=== PATIENT | female | born 1955 | race African-American/Black ===

== ENCOUNTER 2021-07-01 16:35 | Emergency (ER) | payer MEDICARE ==
[~2021-07-01] VITALS: Ht 175.3 cm; Wt 69.0 kg
[2021-07-01] MEDS ORDERED: KETOROLAC 15 MG/ML VIAL. IVP ONE (17:00)
[2021-07-01 17:02] LABS: BASO % 1 % (0-3); EOS % 0 % (0-3); HEMATOCRIT 35.5 % (36.0-47.0); HEMOGLOBIN 11.5 g/dL (12.0-15.5); LYMPH # 1.4 x10^3/uL (1.0-4.8); LYMPH % 18 % (24-48); MEAN CORPUSCULAR HEMOGLOBIN 29 pg (25-35); MEAN CORPUSCULAR HGB CONC 32 g/dL (31-37); MEAN CORPUSCULAR VOLUME 90 fL (79-100); MONO # 0.4 x10^3/uL (0.0-1.1); MONO % 5 % (0-9); NEUT # 5.7 x10^3/uL (1.8-7.7); NEUT % 76 % (31-73); PLATELET COUNT 236 x10^3/uL (140-400); RED BLOOD COUNT 3.96 x10^6/uL (3.50-5.40); RED CELL DISTRIBUTION WIDTH 15.8 % (11.5-14.5); WHITE BLOOD COUNT 7.5 x10^3/uL (4.0-11.0)
[2021-07-01 17:12] LABS: CREATININE 1.1 mg/dL (0.6-1.0); GFR 49.8; POTASSIUM 3.8 mmol/L (3.5-5.1)
[2021-07-01 17:19] LABS: ALBUMIN 3.3 g/dL (3.4-5.0); ALBUMIN/GLOBULIN RATIO 0.7 (1.0-1.7); MAGNESIUM 1.9 mg/dL (1.8-2.4); TOTAL BILIRUBIN 0.6 mg/dL (0.2-1.0); TOTAL PROTEIN 7.8 g/dL (6.4-8.2)
--- NOTE | 2021-07-01 17:27 | RAD ---
Exam: CT head, maxillofacial and cervical spine INDICATION: Fall with face pain, right pain/swelling TECHNIQUE: Sequential axial images through the head, neck facial and cervical spine were obtained wit hout the administration of IV contrast. Exposure: One or more of the following in the visualized dose reduction techniques were utilized for this examination: 1. Automated exposure control 2. Adjustment of the MA and/or KV according to patient size 3. Use of iterative of reconstructive technique Comparisons: None FINDINGS: Head: No focal parenchymal lesion or hemorrhage is identified. There is no midline shift or sulcal effaceme nt. Moderate patchy hypodensity in the periventricular white matter. No acute vascular territory infarcti on is identified. Ndiaye-white distinction is preserved. The ventricular system is within normal limits without compression hydrocephalus. The basal cisterns are well maintained. Face: Mildly displaced fracture involving the anterior wall of the right maxillary sinus and lateral wall o f the right maxillary sinus. There is a orbital blowout fracture involving the medial wall of the lef t orbit. There is partial opacification of the right ethmoid air cells and right maxillary sinus. Jazmyne bes and intraorbital contents are otherwise unremarkable. Cervical spine: Vertebral body heights and alignment are well-maintained. Fracture through the cervical spine is not identified. Multilevel spondylotic change in cervical spine with degenerative disease greatest at C3-C4, C4-C5 an d C5-C6. Visualized paraspinal soft tissues are unremarkable. IMPRESSION: 1. No acute intracranial abnormality. 2. Mildly displaced fracture involving the anterior and lateral wall of the right maxillary sinus. 3. Orbital blowout fracture involving the medial wall of the right orbit. The globe and intraorbital contents are otherwise normal. 4. Negative CT C-spine for acute traumatic injury. Electronically signed by: Sandra Schwartz MD (07/01/2021 5:24 PM) [facility]
--- NOTE | 2021-07-01 17:48 | PHYS DOC ---
Past Medical History Additional Past Medical Histor: POOR HISTORIAN, eye problems, poor vision Additional Past Surgical Histo: POOR HISTORIAN Smoking Status: Never Smoker Alcohol Use: None General Adult EDM: Chief Complaint: MECHANICAL FALL HPI: HPI: Patient is a 66 year old female who presents via EMS after a fall. She reports headache and right eye pain. Patient states that she felt dizzy and fell forward hitting her face on the pavement. She was talking with a friend by his car when she fell to the ground. There is a question of altered mental status associated, EMS thinks she may be intoxicated. Patient is either unable or unwilling to provide further history. Review of Systems: Review of Systems: Constitutional: Denies fever, chills or generalized weakness Eyes: See HPI HENT: Denies ear pain, nasal congestion or sore throat Respiratory: Denies cough or shortness of breath Cardiovascular: Denies chest pain, palpitations or edema GI: Denies abdominal pain, nausea, vomiting, bloody stools or diarrhea : Denies dysuria or hematuria Musculoskeletal: Denies back pain or joint pain Integument: Denies rash or other skin lesion Neurologic: See HPI Heart Score: C/O Chest Pain: No Current Medications: Current Medications Medications (Trade) Dose Ordered Sig/Faisal Start Time Stop Time Status Last Admin Dose Admin Ketorolac Tromethamine (Toradol 15mg Vial) 15 mg 1X ONCE 07/01/21 17:00 07/01/21 17:01 DC 07/01/21 17:00 15 MG Allergies: Allergies: Allergies Coded Allergies Type Severity Reaction Last Updated Verified No Known Drug Allergies 07/01/21 No Physical Exam: PE: Constitutional: Well developed, well nourished, no acute distress, disheveled. HENT: Normocephalic, right periorbital swelling bilateral external ears normal, oropharynx moist, markedly poor dentition, nose normal. Eyes: PERRL, EOMI, right conjunctival injection, mild periorbital swelling on the right side with watery discharge. Neck: Normal range of motion, no tenderness, no stridor. Lungs & Thorax: Equal thoracic expansion, no respiratory distress. Skin: Warm, dry, no erythema, no rash. Back: No step-off, no tenderness. Extremities: No tenderness, no cyanosis, no clubbing, ROM intact, no edema, peripheral pulses symmetrical. Neurologic: Normal motor function, normal sensory function, no focal deficits noted. Psychologic: Affect agitated, judgement normal, mood "I am dizzy." Current Patient Data: Labs: Laboratory Tests Test 07/01/21 16:50 White Blood Count 7.5 x10^3/uL (4.0-11.0) Red Blood Count 3.96 x10^6/uL (3.50-5.40) Hemoglobin 11.5 g/dL (12.0-15.5) L Hematocrit 35.5 % (36.0-47.0) L Mean Corpuscular Volume 90 fL (79-100) Mean Corpuscular Hemoglobin 29 pg (25-35) Mean Corpuscular Hemoglobin Concent 32 g/dL (31-37) Red Cell Distribution Width 15.8 % (11.5-14.5) H Platelet Count 236 x10^3/uL (140-400) Neutrophils (%) (Auto) 76 % (31-73) H Lymphocytes (%) (Auto) 18 % (24-48) L Monocytes (%) (Auto) 5 % (0-9) Eosinophils (%) (Auto) 0 % (0-3) Basophils (%) (Auto) 1 % (0-3) Neutrophils # (Auto) 5.7 x10^3/uL (1.8-7.7) Lymphocytes # (Auto) 1.4 x10^3/uL (1.0-4.8) Monocytes # (Auto) 0.4 x10^3/uL (0.0-1.1) Eosinophils # (Auto) 0.0 x10^3/uL (0.0-0.7) Basophils # (Auto) 0.0 x10^3/uL (0.0-0.2) Sodium Level 139 mmol/L (136-145) Potassium Level 3.8 mmol/L (3.5-5.1) Chloride Level 108 mmol/L (98-107) H Carbon Dioxide Level 19 mmol/L (21-32) L Anion Gap 12 (6-14) Blood Urea Nitrogen 17 mg/dL (7-20) Creatinine 1.1 mg/dL (0.6-1.0) H Estimated GFR (Cockcroft-Gault) 49.8 BUN/Creatinine Ratio 15 (6-20) Glucose Level 161 mg/dL (70-99) H Calcium Level 9.0 mg/dL (8.5-10.1) Magnesium Level 1.9 mg/dL (1.8-2.4) Total Bilirubin 0.6 mg/dL (0.2-1.0) Aspartate Amino Transferase (AST) 24 U/L (15-37) Alanine Aminotransferase (ALT) 8 U/L (14-59) L Alkaline Phosphatase 87 U/L (46-116) Total Protein 7.8 g/dL (6.4-8.2) Albumin 3.3 g/dL (3.4-5.0) L Albumin/Globulin Ratio 0.7 (1.0-1.7) L Laboratory Tests 07/01/21 16:50 Laboratory Tests 07/01/21 16:50 Vital Signs: Vital Signs Date Time Temp Pulse Resp B/P (MAP) Pulse Ox O2 Delivery O2 Flow Rate FiO2 07/01/21 20:25 72 20 184/90 (121) 98 Room Air 07/01/21 19:36 59 20 173/80 (111) 100 07/01/21 17:07 74 20 126/74 (91) 07/01/21 16:52 97.0 67 20 223/93 (136) 98 Room Air 97.0 Radiology/Procedures: Radiology/Procedures: PROCEDURE: CT HEAD AND MAXILLOFACIAL WO Exam: CT head, maxillofacial and cervical spine INDICATION: Fall with face pain, right pain/swelling TECHNIQUE: Sequential axial images through the head, neck facial and cervical spine were obtained without the administration of IV contrast. Exposure: One or more of the following in the visualized dose reduction techniques were utilized for this examination: 1. Automated exposure control 2. Adjustment of the MA and/or KV according to patient size 3. Use of iterative of reconstructive technique Comparisons: None FINDINGS: Head: No focal parenchymal lesion or hemorrhage is identified. There is no midline shift or sulcal effacement. Moderate patchy hypodensity in the periventricular white matter. No acute vascular territory infarction is identified. Ndiaye-white distinction is preserved. The ventricular system is within normal limits without compression hydrocephalus. The basal cisterns are well maintained. Face: Mildly displaced fracture involving the anterior wall of the right maxillary sinus and lateral wall of the right maxillary sinus. There is a orbital blowout fracture involving the medial wall of the left orbit. There is partial opacification of the right ethmoid air cells and right maxillary sinus. Globes and intraorbital contents are otherwise unremarkable. Cervical spine: Vertebral body heights and alignment are well-maintained. Fracture through the cervical spine is not identified. Multilevel spondylotic change in cervical spine with degenerative disease greatest at C3-C4, C4-C5 and C5-C6. Visualized paraspinal soft tissues are unremarkable. IMPRESSION: 1. No acute intracranial abnormality. 2. Mildly displaced fracture involving the anterior and lateral wall of the right maxillary sinus. 3. Orbital blowout fracture involving the medial wall of the right orbit. The globe and intraorbital contents are otherwise normal. 4. Negative CT C-spine for acute traumatic injury. Electronically signed by: Sandra Schwartz MD (07/01/2021 5:24 PM) [facility] ADDENDUM #1 ADDENDUM: Findings should read as follows: There is a orbital blowout fracture involving the medial wall of the RIGHT orbit. Impression is unchanged. ER is aware of correction. Electronically signed by: Sandra Schwartz MD (07/01/2021 7:18 PM) [facility] Course & Med Decision Making: Course & Med Decision Making Pertinent Labs and Imaging studies reviewed. (See chart for details) Patient is a 66-year-old female who presents with right-sided facial and eye pain following a reported fall from standing. Patient is unable to provide history aside from the fact that she states she was standing at "got dark outside," and she fell to the ground. She states she sustained no other injuries and she did not attempt to catch her self. There is question of intoxication involved in her injury today. CT reveals displaced maxillary sinus fracture and blowout orbital fracture on the right side. Patient seems to have a right lateral drift, but it is unclear if this is the patient's baseline or not. Patient states that she follows with Dr. Falk, however ophthalmology on-call was consulted and does not recognize patient name, nor see history in their office. They suggested oculoplastics involvement in patient case. Contacted [facility], who has oculoplastic specialty availability. After some time, we received a call back stating that Dr. Leslie Castillo in trauma will accept the patient for transfer. She does request a CT chest abdomen pelvis prior to transfer, as the patient is a poor historian and her story does not match her injury. Patient is agreeable to transfer for higher level of care. Urine was unable to be obtained prior to transfer. Lab order cancelled. Patient was hemodynamically stable at time of transfer. Dragon Disclaimer: Dragon Disclaimer: This electronic medical record was generated, in whole or in part, using a voice recognition dictation system. Departure Departure Impression: Primary Impression: Maxillary fracture, right side, initial encounter for open fracture Additional Impression: Closed blow-out fracture of left orbit Qualified Codes: S02.32XA - Fracture of orbital floor, left side, initial encounter for closed fracture Disposition: 02 SHORT TERM HOSPITAL Condition: STABLE Referrals: UNKNOWN PCP NAME (PCP) BERNADETTE COOK July 01, 2021 17:48
[2021-07-01] MEDS ORDERED: CONTRAST GIVEN. MC PRN (21:00)
[2021-07-01] MEDS ORDERED: IOHEXOL 300 MG/ML 100ML VIAL. IV ONE (21:00)
[2021-07-01 22:17] VITALS: BP 192/88
[2021-07-01] MEDS ORDERED: ONDANSETRON PF 4 MG/2 ML VIAL. IVP ONE (22:30)
--- NOTE | 2021-07-01 23:05 | RAD ---
CT chest, abdomen and pelvis with contrast: Reason for examination: Trauma. Nausea, vomiting and cough. Helical images were obtained through the chest, abdomen and pelvis with intravenous administration of 60 cc of Omnipaque 300. Reconstruction was performed in sagittal and coronal planes. Exposure: One or more of the following individualized dose reduction techniques were utilized for thi s examination: 1. Automated exposure control 2. Adjustment of the mA and/or kV according to patient size 3. Use of iterative reconstruction technique. Thyroid gland shows 2 small hypodense lesions in the left lobe measuring approximately 1 cm and 7.5 m m in size. The trachea and mainstem bronchi show no intraluminal lesions. No abnormality seen at the esophagus. There is however a moderate size hiatal hernia. The thoracic aorta shows some mild dilatation of the ascending thoracic aorta at 3 cm. No dissection is seen. The heart size is normal with no pericardial effusion. No pulmonary embolus is evident. There appears to be a calcified granuloma in the right lower lobe. No infiltrates or pleural effusion s are seen. No pneumothorax is evident There are no acute bony abnormality seen in the thorax. There are Schmorl's nodes present in the infe rior endplate of the T10 vertebral body and superior and inferior endplates of the T11 vertebral body . There is cortical irregularities seen on the sagittal projection in the sternal manubrium and the s econd ribs bilaterally anteriorly. This appears to extend to the skin surface and likely represents m isregistration artifact from motion. No mediastinal hematoma or soft tissue edema seen in these areas . The liver shows 2 areas of decreased density in the left lobe measuring 4 x 2 x 3.3 cm in greatest di mensions and 2.2 x 2.3 x 2 cm in greatest dimensions. These may represent hemangioma however hepatic metastases cannot be excluded. Ultrasound follow-up is recommended. Gallbladder shows cholelithiasis with no pericholecystic fluid. No abnormality seen at the spleen, pancreas or adrenal glands. The abdominal aorta and inferior vena cava show no acute abnormalities. The colon is collapsed to the distal ascending colon with no diverticulosis or diverticulitis evident . There is a circumferential soft tissue mass with stenosis in the distal ascending colon measuring a pproximately 4 cm in length. There is dilated and fluid-filled proximal ascending colon, cecum and sm all intestine without wall thickening. The stomach and duodenum are also fluid-filled. There is a mod erate size hiatal hernia present. The kidneys show no renal masses, renal calculi, hydronephrosis or obstructive uropathy. No abnormality seen at the bladder or vaginal cuff. There are couple small lymph nodes present in the right lower quadrant. No free fluid or free air seen in the abdomen or pelvis. IMPRESSION: 2 small hypodense lesions in the left lobe of the thyroid gland measuring 1 cm and 7.5 mm in size. Moderate sized hiatal hernia. Mild dilatation of the ascending thoracic aorta 3 cm. Cholelithiasis. 2 hypodense lesions in the left lobe of liver measuring 4 cm and 2.3 cm in greatest dimensions. These could represent hemangioma however hepatic metastases cannot be excluded. Further evaluation with alfonso should be considered. 4 cm circumferential mass causing stenosis in the distal ascending colon suspicious for colonic malig cory with dilated fluid-filled ascending colon, cecum and small intestinal tract consistent with obs truction. Small lymph nodes are seen in the right lower quadrant. FOR INTERNAL CODING PURPOSES Critical result: Findings discussed with the ER physician at 07/01/2021 10:58 PM. RESULT CODE: (C) Electronically signed by: Génesis Villarreal MD (07/01/2021 11:03 PM) [facility]
== END 2021-07-01 22:40 | disposition short-term general hospital (02) ==
LOC: ER 16:35 → EDBD 16:35 → ER 22:40
DX: S02.32XA Fracture of orbital floor, left side, initial encounter for closed fracture (principal); S02.40CB Maxillary fracture, right side, initial encounter for open fracture; W18.09XA Striking against other object with subsequent fall, initial encounter; Y93.89 Activity, other specified; Y92.89 Other specified places as the place of occurrence of the external cause; Y99.8 Other external cause status
CPT/HCPCS: 36415; 70450; 70486; 71260; 72125; 74177; 80053; 83735; 85025; 96374; 96375; 99285; J1885; J2405; Q9967